=== PATIENT | male | born 1930 | race Two or more races ===

== ENCOUNTER 2017-09-20 07:21 | Day surgery (SDC) | payer MEDICARE, BC ==
--- NOTE | 2017-09-19 23:01 | Pre-Procedure Note/Attestation ---
Pre-Procedure Note/Attestation Complete Prior to Procedure Planned Procedure: left - Repair of wound dehiscence, left eye Procedure Narrative: Repair of wound dehiscence, left cornea Indications for Procedure Pre-Operative Diagnosis: Wound dehiscence, left cornea Attestation I attest that I discussed the nature of the procedure; its benefits; risks and complications; and alternatives (and the risks and benefits of such alternatives ), prior to the procedure, with the patient (or the patient's legal paper sales representative). I attest that, if there was a reasonable possibility of needing a blood transfusion, the patient (or the patient's legal paper sales representative) was given the [place] [facility] standardized written summary, pursuant to the Jose Zohra Blood Safety Act ([place] Health and Safety Code # 1645, as amended). I attest that I re-evaluated the patient just prior to the surgery and that there has been no change in the patient's H&P, except as documented below: Christopher Tamez MD Sep 19, 2017 23:01
[~2017-09-20] VITALS: Ht 174 cm; Wt 59.9 kg
[2017-09-20] VITALS (8 sets, daily range): BP systolic 141–180; BP diastolic 85–102
--- NOTE | 2017-09-20 06:19 | Anethesia Preoperative Eval ---
Anesthesia Pre-op PMH/ROS General Date of Evaluation: Sep 20, 2017 Time of Evaluation: 06:17 Anesthesiologist: perla ASA Score: ASA 3 Mallampati Score Class I : Soft palate, uvula, fauces, pillars visible Class II: Soft palate, uvula, fauces visible Class III: Soft palate, base of uvula visible Class IV: Only hard plate visible Mallampati Classification: Class II Surgeon: jeremi Family History: no anesthesia problems Allergies: Coded Allergies: No Known Allergies (Unverified , 09/20/17) Medications: see eMAR Anesthesia Pre-op Phys. Exam Physician Exam Constitutional: NAD Neurologic: CN 2-12 intact Cardiovascular: RRR Respiratory: CTA Gastrointestinal: S/NT/ND Airway Exam Mallampati Score: Class II MO: limited Neck: short TMD: 2fb ROM: limited Anesthesia Pre-op A/P Risk Assessment & Plan Assessment: asa3 Plan: mac Status Change Before Surgery: No Pre-Antibiotics Drug: AMBROSIO Johnson Sep 20, 2017 06:19
[~2017-09-20 07:21] MED LIST: AMLODIPINE BES2.5 MG ORAL; ATORVASTATIN CA20 MG ORAL; LANSOPRAZOLE30 MG ORAL; LEVOTHYROXINE50 MCG ORAL; LISINOPRIL20 MG ORAL; METOCLOPRAMIDE H5 M1 ORAL; MURO RIGHT EYE; MURO-12815 ML RIGHT EYE; POTASSIUM CHLO10 MEQ ORAL; PROSCAR5 MG ORAL; Pred Forte 1% Opth Susp 1ml LEFT EYE ONE; [UNRECOGNIZED DRUG - OTHER] RIGHT EYE
[2017-09-20] MEDS ORDERED: Pred Forte 1% Opth Susp 1ml ONE (07:30)
[2017-09-20] MEDS ORDERED: Akten 3.5% 1ml Btl ONE (07:30)
[2017-09-20] MEDS ORDERED: Ciprofloxacin Opth Soln 2.5ml ONE (07:30)
[2017-09-20] MEDS: Akten 3.5% 1ml Btl LEFT EYE SCH ×3 (07:57→08:14)
[2017-09-20] MEDS: Ciprofloxacin Opth Soln 2.5ml LEFT EYE SCH ×3 (07:57→08:14)
[2017-09-20] MEDS ORDERED: Atropine Inj 1mg/10ml Syr IV PRN (08:30)
[2017-09-20] MEDS ORDERED: DiphenhydrAMINE 50mg/ml Inj IVP PRN (08:30)
[2017-09-20] MEDS ORDERED: Fluorescein Strips ONE ×2 (08:30→12:36)
[2017-09-20] MEDS ORDERED: fentaNYL 100 mcg/2 mL IV PRN (08:30)
[2017-09-20] MEDS ORDERED: Midazolam 2mg/2ml Inj IVP PRN (08:30)
[2017-09-20] MEDS ORDERED: Povidone-Iodine 5% opth solution ONE (08:31)
[2017-09-20] MEDS ORDERED: Lidocaine 1% MPF 10mg/ml 5ml ONE (08:31)
[2017-09-20] MEDS ORDERED: BSS 15ml BTL ONE (08:31)
[2017-09-20] MEDS ORDERED: Maxitrol Opth Oint 3.5gm ONE (08:37)
[2017-09-20] MEDS ORDERED: LR 1000ml ONE (09:30)
[2017-09-20] MEDS ORDERED: fentaNYL 100 mcg/2 mL IV ONE (09:30)
[2017-09-20] MEDS ORDERED: Sterile Water Irrig 1000ml IRRIG ONE (09:30)
[2017-09-20] MEDS ORDERED: NS Irrig 1000ml ONE (09:30)
[2017-09-20] MEDS ORDERED: acetaZOLAMIDE 500mg Inj ONE (10:12)
[2017-09-20] MEDS ORDERED: Timolol 0.5% Op Soln 2.5ml ONE (10:17)
--- NOTE | 2017-09-20 10:45 | Brief Operative Note ---
Immediate Post Operative Note Operative Note Pre-op Diagnosis: Wound dehiscence, left cornea Procedure: Repair of wound dehiscence, left cornea Post-op Diagnosis: same as pre-op Surgeon: Rukhsana Tamez MD Anesthesiologist: Dr Keys Anesthesia: local, MAC Specimen: none Complications: none Fluids: as noted in chart Implant(s) used?: No Christopher Tamez MD Sep 20, 2017 10:45
--- NOTE | 2017-09-20 10:46 | Discharge Instructions ---
Discharge Instructions Discharge Instructions Follow Up Orders Pt to lie flat on back until seen in Dr Tamez's office at 08:00 tomorrow morning Keep shield on at all times except to place eye drops Continue pre op eye drops For Congestive Heart Failure Reminder Report to your physician any weight gain of 5 pounds or more in one week. Christopher Tamez MD Sep 20, 2017 10:46
--- NOTE | 2017-09-20 13:17 | Immediate Post-Op Evaluation ---
Immediate Post-Op Evalulation Immediate Post-Op Evalulation Procedure: re-bubble left eye Date of Evaluation: Sep 20, 2017 Time of Evaluation: 10:36 IV Fluids: 1100ml Blood Products: none Estimated Blood Loss: negligible Urinary Output: 700ml Blood Pressure Systolic: 168 Blood Pressure Diastolic: 100 Pulse Rate: 64 Respiratory Rate: 18 O2 Sat by Pulse Oximetry: 100 Temperature (Fahrenheit): 97.7 Pain Score (1-10): 0 Nausea: No Vomiting: No Complications none Patient Status: awake, reacts, patent Hydration Status: adequate Drug: AMBROSIO Johnson Sep 20, 2017 13:17
--- NOTE | 2017-09-20 13:19 | 48 Hour Post Anesthesia Eval ---
Post Anesthesia Evaluation Procedure: re-bubble left eye Date of Evaluation: Sep 20, 2017 Time of Evaluation: 10:38 Blood Pressure Systolic: 180 0: 100 Pulse Rate: 64 Respiratory Rate: 18 Temperature (Fahrenheit): 97.7 O2 Sat by Pulse Oximetry: 100 Airway: patent Nausea: No Vomiting: No Pain Intensity: 0 Hydration Status: adequate Cardiopulmonary Status: stable Mental Status/LOC: patient returned to baseline Post-Anesthesia Complications: none Follow-up care needed: N/A AMBROSIO MCKEON Sep 20, 2017 13:19
--- NOTE | 2017-09-20 19:00 | Operative Note - Dictated ---
DATE OF OPERATION: 09/20/2017 SURGEON: Christopher Tamez M.D. TEST PREPARER SURGEON: None. ANESTHESIOLOGIST: Chayo Waters M.D. PREOPERATIVE DIAGNOSIS: Wound dehiscence, left cornea. POSTOPERATIVE DIAGNOSIS: Wound dehiscence, left cornea. PROCEDURE: Repair of wound dehiscence in the left eye. SPECIMENS: None. COMPLICATIONS: None. INDICATIONS FOR SURGERY: The patient is status post DSEK graft in the left eye. Postop day 1, it was noted to be dislocated from the recipient cornea. The patient presented for refloating of the DSEK graft today. The patient understands the risk of surgery including infection, bleeding, need for further surgery, loss of vision, no improvement in vision, loss of the eye, loss of life, glaucoma, retinal detachment, graft rejection, need for further repair, and understands these risks and elects to proceed with surgery. FINDINGS: The DSEK graft was 100% dislocated from the recipient cornea. OPERATIVE NOTE: After informed consent was obtained, the patient was brought into the operative room and placed in supine position. Cardiac and respiratory monitors were attached. A time-out was performed and all criteria were met and everyone in the room agreed. The left eye was then draped and prepped in sterile manner for ocular surgery. A lid speculum was placed in the eye. A 1% lidocaine preservative-free was injected into the anterior chamber. An air bubble was then injected into the anterior chamber and the graft floated nicely up to the recipient cornea. The donor graft was then positioned centrally on the recipient cornea according to the overlying 8 mm gualberto made at the beginning of the case on the corneal surface. A 100% air fill was then placed in the anterior chamber for approximately 13 minutes. This was then removed and left with a partial air bubble of approximately 6 to 8 mm. The wounds were checked and found to be Mendy negative. The lid speculum and drapes were removed from the eye and drops of Pred Forte and ciprofloxacin were applied to the eye followed by Maxitrol ointment and then a shield. The patient tolerated the procedure well and left the operating room awake, alert, and in stable condition. Christopher Tamez M.D. DR: JORGE ALBERTO JOB#: [id number] CC:
== END 2017-09-20 12:05 | disposition home or self-care (01) ==
LOC: SUR 07:21
DX: T81.30XA Disruption of wound, unspecified, initial encounter (principal); Y83.9 Surgical procedure, unspecified as the cause of abnormal reaction of the patient, or of later complication, without mention of misadventure at the time of the procedure; Y77.8 Miscellaneous ophthalmic devices associated with adverse incidents, not elsewhere classified
CPT/HCPCS: 66250; J0360; J1120; J3010; J7120; 94003; 94150

== ENCOUNTER 2017-10-25 10:00 | Day surgery (SDC) | payer MEDICARE, BC ==
--- NOTE | 2017-10-24 22:17 | Pre-Procedure Note/Attestation ---
Pre-Procedure Note/Attestation Complete Prior to Procedure Planned Procedure: left - Repositioning of DSEK graft, left eye Procedure Narrative: Repositioning of DSEK graft left eye Indications for Procedure Pre-Operative Diagnosis: Dislocation of DSEK graft left eye Attestation I attest that I discussed the nature of the procedure; its benefits; risks and complications; and alternatives (and the risks and benefits of such alternatives ), prior to the procedure, with the patient (or the patient's legal technical sales representatives). I attest that, if there was a reasonable possibility of needing a blood transfusion, the patient (or the patient's legal technical sales representatives) was given the [facility] standardized written summary, pursuant to the Jose Zohra Blood Safety Act ([place] Health and Safety Code # 1645, as amended). I attest that I re-evaluated the patient just prior to the surgery and that there has been no change in the patient's H&P, except as documented below: Christopher Tamez MD Oct 24, 2017 22:17
[~2017-10-25] VITALS: Ht 172.7 cm; Wt 59.0 kg
[2017-10-25] VITALS (8 sets, daily range): BP systolic 130–161; BP diastolic 79–93
[~2017-10-25 10:00] MED LIST changes: -Pred Forte 1% Opth Susp 1ml LEFT EYE ONE
[2017-10-25] MEDS ORDERED: PREDNISOLO15 MG/5 M1 ORAL (10:43)
[2017-10-25] MEDS ORDERED: Propofol 200mg/20ml IV ONE (11:30)
[2017-10-25] MEDS ORDERED: Midazolam 2mg/2ml Inj ONE (11:30)
[2017-10-25] MEDS ORDERED: fentaNYL 100 mcg/2 mL IV ONE (11:30)
[2017-10-25] MEDS ORDERED: LR 1000ml ONE (11:30)
[2017-10-25] MEDS ORDERED: BSS 15ml BTL ONE ×2 (11:38→12:31)
[2017-10-25] MEDS ORDERED: Povidone-Iodine 5% opth solution ONE (11:39)
[2017-10-25] MEDS ORDERED: Lidocaine 1% MPF 10mg/ml 5ml ONE (11:52)
[2017-10-25] MEDS ORDERED: Bupivacaine 0.75% 30ml vial INJ ONE (11:52)
[2017-10-25] MEDS ORDERED: Tetracaine 0.5% Opth 4ml Soln ONE (12:20)
[2017-10-25] MEDS ORDERED: Carbachol 0.01% Op Soln 1.5ml vial ONE (12:34)
[2017-10-25] MEDS ORDERED: acetaZOLAMIDE 500mg Inj ONE (13:00)
[2017-10-25] MEDS ORDERED: Timolol 0.5% Op Soln 2.5ml ONE (13:00)
[2017-10-25] MEDS ORDERED: Fluorescein Strips ONE (13:05)
[2017-10-25] MEDS ORDERED: Ciprofloxacin Opth Soln 2.5ml ONE (13:11)
[2017-10-25] MEDS ORDERED: Pred Forte 1% Opth Susp 1ml ONE (13:11)
[2017-10-25] MEDS ORDERED: Maxitrol Opth Oint 3.5gm ONE (13:14)
[2017-10-25] MEDS ORDERED: Brimonidine 0.2% Opth Sol LEFT EYE ONE (13:15)
--- NOTE | 2017-10-25 13:19 | Discharge Instructions ---
Discharge Instructions Discharge Instructions Follow Up Orders Continue preop eye drops Wear shield at all times Lie flat on back until appointment with Dr Tamez tomorrow For Congestive Heart Failure Reminder Report to your physician any weight gain of 5 pounds or more in one week. Christopher Tamez MD Oct 25, 2017 13:19
--- NOTE | 2017-10-25 13:24 | Brief Operative Note ---
Immediate Post Operative Note Operative Note Pre-op Diagnosis: Dislocation of DSEK graft left eye Procedure: Repositioning of DSEK lenticule Post-op Diagnosis: same as pre-op Surgeon: Rukhsana Tamez MD MS Comsec Manager: none Anesthesiologist: Dr Park Anesthesia: local, MAC Specimen: none Complications: none Fluids: as noted in chart Estimated Blood Loss: minimal Implant(s) used?: No Christopher Tamez MD Oct 25, 2017 13:24
--- NOTE | 2017-10-26 08:45 | Operative Note - Dictated ---
DATE OF OPERATION: 10/25/2017 SURGEON: Christopher Tamez M.D. LENS FINISHER SURGEON: None. ANESTHESIOLOGIST: Dr. Park. ANESTHESIA: Local/standby/monitored anesthesia care. PREOPERATIVE DIAGNOSIS: Dislocated DSEK graft, left eye. POSTOPERATIVE DIAGNOSIS: Dislocated DSEK graft, left eye. PROCEDURE: Repositioning of DSEK graft with rebubbling in the left eye. SPECIMENS: None. COMPLICATIONS: None. INDICATIONS FOR SURGERY: The patient is status post DSEK and actually status post DSEK repositioning of the graft, but the graft migrated superiorly. Part of the graft is in the angle also. The patient understands the risk surgery including infection, bleeding, need for further surgery, loss of vision, no improvement in vision, loss of the eye, loss of life, glaucoma, retinal detachment, understands these risks and elects to proceed with surgery. He also understands that the graft may fail or need another repositioning. FINDINGS: The graft was superiorly displaced with the inferior edge almost crossing through the pupil. OPERATIVE NOTE: After informed consent was obtained, the patient was brought in the operating room and placed in spine position. Cardiac and respiratory monitors were attached. A time-out was performed and all criteria were met and everyone in the room agreed. The left eye was then draped and prepped in a sterile manner for ocular surgery. Examination of the graft revealed that it was superiorly displaced with the superior edge into the angles of the eye. The inferior edge of the graft was at the inferior margin of the pupil and actually possibly within the pupillary visual axis. A super sharp blade was used to cut the suture at the 5 o'clock previous paracentesis. This paracentesis was then opened with another paracentesis at approximately 2:30. Air was injected into the anterior chamber. Using a cyclodialysis spatula, I was able to come through paracentesis and dissect free the graft from the recipient stroma. Also I also wanted to the angle to try and separate it too. I was able to use a straight [place] hook to try and pull the graft inferiorly. Air was injected into the eye multiple times to help maintain the anterior chamber. The graft was brought inferiorly and seemed to be positioned very centrally. Air was introduced into the anterior chamber leaving approximately 6 mm air bubble. Several 10-0 nylon interrupted sutures were placed at the previous wound to heal that wound as I was able to go through that wound also to help reposition the graft. The surface of the cornea was wiped with a curved spatula to try to remove any interface fluid. There was no interface air. The wounds were checked and found to be Mendy negative at the paracentesis, but there was Mendy positive at the previous wound and a 10-0 nylon interrupted sutures were placed and the wound was found to be Mendy negative. Diamox 500 mg IV was given at the end of procedure. Approximately 30 minutes with a full air fill while trying to reposition the graft as it was repositioned. Part of the air was removed and leaving approximately 6 mm air bubble. The wound again was checked and that found to be Mendy negative at the paracentesis and the wound. The lid speculum and drapes were removed from the eye and drops of Brimonidine, Timoptic, Pred Forte, and ciprofloxacin were applied to the eye followed by Maxitrol ointment and then a shield. The patient tolerated the procedure well and left the operating room in awake, alert, and stable condition. Christopher Tamez M.D. DR: RAYSHAWN JOB#: [id number] CC:
== END 2017-10-25 16:00 | disposition home or self-care (01) ==
LOC: SUR 10:00
DX: T85.328A Displacement of other ocular prosthetic devices, implants and grafts, initial encounter (principal); I10 Essential (primary) hypertension; E03.9 Hypothyroidism, unspecified; E78.5 Hyperlipidemia, unspecified; Z94.7 Corneal transplant status; Y83.2 Surgical operation with anastomosis, bypass or graft as the cause of abnormal reaction of the patient, or of later complication, without mention of misadventure at the time of the procedure; Y77.8 Miscellaneous ophthalmic devices associated with adverse incidents, not elsewhere classified; Y92.9 Unspecified place or not applicable
CPT/HCPCS: 66250; J1120; J2250; J2704; J3010; J7120; 94003; 94150